=== PATIENT | female | born 1970 | race Hispanic/Latino ===

== ENCOUNTER → 2017-07-25 | Outpatient (CLI) | payer OTHER ==
[~2017-07-25] MED LIST: CIPRO500 MG PO; LOVASTATIN40 MG PO; NITROFURANTOIN100 MG PO; TYLENOL PO
--- NOTE | 2017-07-25 11:53 | Diagnostic Imaging Report ---
PROCEDURE:US RETROPERITONEAL ( KIDNEY ). COMPARISON:Patients [facility], US, US RETROPERITONEAL ( KIDNEY )., 09/27/2016, 16:10. Patients [facility], MRI, MRI ABDOMEN WOW, 05/18/2016, 10:15. Patients [facility], US, US RETROPERITONEAL ( KIDNEY )., 03/30/2017, 10:34. INDICATIONS:KIDNEY CYST TECHNIQUE: Burrell-scale and color sonographic images of the bilateral kidneys and bladder where obtained in transverse and longitudinal planes. FINDINGS: RIGHT KIDNEY: 10.1 cm, cortex 1.4 cm Cysts: None Solid masses: None Stones: None Hydronephrosis: None Echogenicity: Normal LEFT KIDNEY: 12.5 cm, cortex 2.0 cm Cysts: 1.9 x 1.6 x 1.8 cm hypoechoic complex cyst with a few linear internal echoes, likely representing thin septations, in the superior to mid aspect (previously measured 1.9 x 1.7 x 2.0 cm). Solid masses: None Stones: None Hydronephrosis: None Echogenicity: Normal Bladder: No focal lesions. Ureteral jets are identified. CONCLUSION: 1. Stable size and appearance of mildly complex cystic lesion in the superior to mid aspect of the left kidney. On prior MRI abdomen dated 05/18/2016, there was no significant enhancement or mural nodularity, suggesting a Bosniak 2 cyst. Francis Brower M.D. Dictated by: Francis Brower M.D. on 07/25/2017 at 12:03 Electronically approved by: Francis Brower M.D. on 07/25/2017 at 12:03
== END ==
LOC: US 09:34
PROVIDERS: ATTEND Urology
DX: N28.1 Cyst of kidney, acquired (principal)
CPT/HCPCS: 76770

== ENCOUNTER → 2017-12-22 | Day surgery (SDC) | payer OTHER ==
[~2017-12-22] MED LIST changes: +BOTULINUM TOXIN TYPE A 100 UNIT VIAL IM ONE; +CALCIUM PO; +CEFTRIAXONE SOD 1 GM VIAL ONE; +DEXAMETHASONE SOD PHOS INJ 4 MG/ML VIAL ONE; +FENTANYL CITRATE/PF 100MCG/2 ML INJ ONE; +IOPAMIDOL 610MG/1ML 300 MG/ML VIAL IV ONE; +LIDOCAINE HCL 2% LOCAL INJ 5 ML SDV VIAL INJ ONE; +MIDAZOLAM HCL 2 MG/2 ML VIAL ONE; +MULTIVITAMINS1 EAC7 PO; +OMEGA 3 PO; +ONDANSETRON HCL INJ 2 MG/ML VIAL ONE; +PRAVASTATIN SOD40 MG PO; +PROPOFOL IV EMULSION 10 MG/ML 20 ML VIAL ONE; +SEVOFLURANE INHAL SOLN 250 ML PEN BTL ONE
--- NOTE | 2017-12-25 09:24 | Operative Report ---
DATE OF PROCEDURE: December 22, 2017 PREOPERATIVE DIAGNOSIS: Refractory urge incontinence. POSTOPERATIVE DIAGNOSIS: Refractory urge incontinence. PROCEDURE: Cystourethroscopy with Botox injection (chemodenervation of bladder), CPT 45175. ANESTHESIA: General. ESTIMATED BLOOD LOSS: Minimal. COMPLICATIONS: None. INDICATIONS: Ms. Grajeda is a 47-year-old female who has failed multiple medications for urge incontinence. She now elects to proceed with Botox instead of percutaneous nerve stimulation or InterStim. She voiced an understanding of the options, the alternatives, and the risks and benefits and elected to proceed. PROCEDURE IN DETAIL: After informed consent was obtained, the patient was taken to the operative suite and placed supine on the operating table and underwent general anesthesia by the anesthesia service. She was placed in the dorsal lithotomy position. She was sterilely prepped and draped in the standard fashion for cystoscopy. A 22.5-Sami cystoscope was inserted per urethra. A normal urethra was noted. Panendoscopy of the bladder revealed no tumors and no stones. Both ureteral orifices were in their normal anatomic location and position and were seen to efflux clear urine. Botox injection was performed in the standard fashion in a grid-like pattern on the posterior wall. There was no active bleeding at the cessation of this. The patient tolerated the procedure well and was transported to the recovery room in excellent condition with no untoward effects noted. Job#: [id number]
== END | disposition home or self-care (01) ==
LOC: OR 06:35
PROVIDERS: ATTEND Urology
DX: N39.46 Mixed incontinence (principal); D41.00 Neoplasm of uncertain behavior of unspecified kidney; N39.0 Urinary tract infection, site not specified; R35.1 Nocturia; R80.9 Proteinuria, unspecified; Z86.11 Personal history of tuberculosis
CPT/HCPCS: 52287; J0587; J0696; J1100; J2001; J2250; J2405